=== PATIENT | male | born 1995 ===

== ENCOUNTER 2021-01-11 12:59 | Inpatient (IN) | payer OTHER ==
[2021-01-11 15:36] LABS: HEMATOCRIT 41.9 % (42.0-52.0); HEMOGLOBIN 14.4 g/dl (13.5-18.0); MEAN CELL VOLUME 88 fl (80.0-100.0); MEAN CORPUSCULAR HEMOGLOBIN 30 pg (27.0-31.0); MEAN CORPUSCULAR HGB CONC 34 g/dl (33.0-37.0); MEAN PLATELET VOLUME 9.9 fl (7.4-10.4); PLATELET COUNT 224 K/mm3 (130-400); RED BLOOD COUNT 4.78 M/mm3 (4.20-5.60); REDCELL DISTRIBUTION WIDTH-CV 12.1 % (11.5-14.5)
[2021-01-11 15:46] LABS: ALBUMIN 4.3 gm/dL (3.5-5.0); BILIRUBIN,TOTAL 1.1 mg/dL (0.0-1.0); CALCIUM 9.1 mg/dL (8.4-10.2); CREATININE, serum 0.98 (0.66-1.25); POTASSIUM 3.9 mmol/L (3.4-5.0); TOTAL PROTEIN 8.1 gm/dL (6.4-8.2)
[2021-01-11 15:59] VITALS: BP 127/80; PULSE 94; TEMP 98.5
[2021-01-11 16:25] LABS: BAND 1 % (0-10); LYMPHOCYTE 13 % (20.0-51.0); NEUTROPHILS 77 % (42.0-75.2)
[2021-01-11 20:15] VITALS: BP 123/84; PULSE 95; TEMP 99.5
[2021-01-12] VITALS (7 sets, daily range): BP systolic 94–144; BP diastolic 54–78; PULSE 66–94; TEMP 98.2–98.9
--- NOTE | 2021-01-12 06:03 | NUR ---
INDEPENDENT IN ROOM. NO c/o N/V. PT WAS ADMIN. MORPHINE FOR ABDOMINAL PAIN SEVERAL TIMES DURING THE NIGHT. NO REPORTS OF STOOLS OR BLOOD IN STOOL.
[2021-01-12 06:13] LABS: BASO # 0.1 (0.0-0.2); BASO % 0.6 % (0.0-2.0); EOS # 0.2 (0.0-0.7); EOS % 1.8 % (0-4.0); GRAN # 6.5 (1.4-6.5); GRAN % 63.8 % (42.2-75.2); HEMATOCRIT 38.7 % (42.0-52.0); HEMOGLOBIN 13.1 g/dl (13.5-18.0); LYMPH # 2.5 (1.2-3.4); LYMPH % 24.5 % (20.0-51.0); MEAN CELL VOLUME 89 fl (80.0-100.0); MEAN CORPUSCULAR HEMOGLOBIN 30 pg (27.0-31.0); MEAN CORPUSCULAR HGB CONC 34 g/dl (33.0-37.0); MONO # 0.9 (0.1-0.6); MONO % 8.8 % (1.7-9.3); PLATELET COUNT 214 K/mm3 (130-400); RED BLOOD COUNT 4.37 M/mm3 (4.20-5.60)
[2021-01-12 06:24] LABS: CALCIUM 8.8 mg/dL (8.4-10.2); CREATININE, serum 1.13 (0.66-1.25); POTASSIUM 4.2 mmol/L (3.4-5.0)
--- NOTE | 2021-01-12 08:34 | NUR ---
Patient resting in bed. Denies nausea, clear liquid tray for breakfast ordered. Reports elevated pain with Po intake, but not nausea. I spoke with Ambika Kinney, PO pain medication ordered & given to patient. Reports his pain to his LLQ. States he has taken [place] in the past and denies problems. Ivf per orders. Patient provided with hygiene supplies, he is wantitng to take shower after breakfast. Scds ordered for Dvt preventions. Will monitor.
--- NOTE | 2021-01-12 09:27 | NUR ---
PATIENT UP TO TAKE SHOWER. REPORTS [place]CO RELIEVING PAIN BETTER THAN MORPHINE WAS. WILL MONITOR.
--- NOTE | 2021-01-12 10:09 | NUR ---
HONG met with the patient to discuss discharge plan. The patient lives in [place] with his , Nayla (ph#[phone]), and their son. He reports independence with ADLs and does not have any DME. The patient receives primary care at [facility] on [address]. He could not recall his providers name. He receives his medications from [facility] in and he reports no difficulties obtaining his meds. The patient does not have a DPOA-HC and he was not interested in completing one while here. The patient plans to return home with his family upon discharge. No additional needs at this time. *Discharge plan: home with family*
--- NOTE | 2021-01-12 10:17 | NUR ---
Patient showered. Reports it was refreshing. His at bedside.
--- NOTE | 2021-01-12 12:43 | NUR ---
First visit from the automotive heavy mechanic. No needs right now.
--- NOTE | 2021-01-12 13:57 | NUR ---
Patient resting in bed. Rony manages pain. Continues to tolerate clear liquids. He does report having some loose stools.
--- NOTE | 2021-01-12 18:02 | NUR ---
Rony for pain. Ivf per orders. Clear liquids tray ordered. Denies nausea. Hopeful for discharge home tmrw. Will report off to nightnurse
[2021-01-13 03:41] VITALS: BP 106/58; PULSE 63; TEMP 98.6
[2021-01-13 07:08] LABS: BASO # 0.1 (0.0-0.2); BASO % 0.6 % (0.0-2.0); EOS # 0.2 (0.0-0.7); EOS % 1.9 % (0-4.0); GRAN # 5.2 (1.4-6.5); GRAN % 57.8 % (42.2-75.2); HEMATOCRIT 39.7 % (42.0-52.0); HEMOGLOBIN 13.5 g/dl (13.5-18.0); LYMPH # 2.6 (1.2-3.4); LYMPH % 29.2 % (20.0-51.0); MEAN CELL VOLUME 89 fl (80.0-100.0); MEAN CORPUSCULAR HEMOGLOBIN 30 pg (27.0-31.0); MEAN CORPUSCULAR HGB CONC 34 g/dl (33.0-37.0); MEAN PLATELET VOLUME 10.4 fl (7.4-10.4); MONO # 0.9 (0.1-0.6); MONO % 10.1 % (1.7-9.3); PLATELET COUNT 219 K/mm3 (130-400); RED BLOOD COUNT 4.46 M/mm3 (4.20-5.60); REDCELL DISTRIBUTION WIDTH-CV 11.9 % (11.5-14.5)
[2021-01-13 07:21] LABS: CALCIUM 8.9 mg/dL (8.4-10.2); CREATININE, serum 1.07 (0.66-1.25); POTASSIUM 3.8 mmol/L (3.4-5.0)
[2021-01-13 07:44] VITALS: BP 106/65; PULSE 69; TEMP 98.4
--- NOTE | 2021-01-13 08:00 | NUR ---
PATIENT IS ORIENTED BUT VERY DROWSY THIS AM. VSS. PRACTICE SPECIALIST GAVE PAIN MEDS SHORTLY BEFORE SHIFT CHANGE, PATIENT RESTING COMFORTABLY. ABD IS SL DISTENDED, SOFT AND WITH POSITIVE BOWL SOUNDS. NO C/O N/V. IV ABX INFUSING INTO RIGHT FORARM. HEAD TO TOE ASSESSMENT COMPLETE. NO NEEDS AT THIS TIME. CALL LIGHT IN REACH.
--- NOTE | 2021-01-13 10:01 | NUR ---
Initial visit; Patient thanked Auto Claims Adjuster for looking in on him, offering God's blessings and keeping him in Auto Claims Adjuster's prayers.
[2021-01-13 11:09] VITALS: BP 121/77; PULSE 72; TEMP 98.1
[2021-01-13 15:23] VITALS: BP 115/82; PULSE 71; TEMP 97.9
--- NOTE | 2021-01-13 18:53 | NUR ---
Patient sitting in bed eating his dinner. PRN pain medication administered by day nurse. No requests or concerns verbalized by patient at this time.
[2021-01-13 20:21] VITALS: BP 120/74; PULSE 86; TEMP 98.9
[2021-01-14 03:54] VITALS: BP 105/71; PULSE 61; TEMP 97.3
[2021-01-14 06:54] LABS: CALCIUM 8.8 mg/dL (8.4-10.2); CREATININE, serum 1.19 (0.66-1.25); POTASSIUM 3.7 mmol/L (3.4-5.0)
[2021-01-14 06:55] LABS: BASO # 0.1 (0.0-0.2); BASO % 0.7 % (0.0-2.0); EOS # 0.2 (0.0-0.7); EOS % 2.2 % (0-4.0); GRAN # 4.1 (1.4-6.5); HEMATOCRIT 37.9 % (42.0-52.0); LYMPH # 2.2 (1.2-3.4); LYMPH % 30.4 % (20.0-51.0); MEAN CELL VOLUME 88 fl (80.0-100.0); MEAN CORPUSCULAR HEMOGLOBIN 30 pg (27.0-31.0); MEAN CORPUSCULAR HGB CONC 34 g/dl (33.0-37.0); MEAN PLATELET VOLUME 10.2 fl (7.4-10.4); MONO # 0.8 (0.1-0.6); MONO % 10.2 % (1.7-9.3); PLATELET COUNT 252 K/mm3 (130-400); RED BLOOD COUNT 4.33 M/mm3 (4.20-5.60); REDCELL DISTRIBUTION WIDTH-CV 11.9 % (11.5-14.5)
[2021-01-14 07:33] VITALS: BP 108/65; PULSE 56; TEMP 98.3
[2021-01-14] MEDS ORDERED: AMOXICILLIN 8751 TAB PO (08:18)
[2021-01-14] MEDS ORDERED: NORCO 325 MG-51 TAB PO (08:19)
--- NOTE | 2021-01-14 10:30 | NUR ---
Patient is discharging home. Discharge instructions discussed with patient. No questions verbalized. INT discontinued. Explained he has scripts to case picker at the pharmacy. Discussed low fiber diet. Explained to finish the antibiotic even if feeling better. Explained when follow up appointment is. No questions verbalized. Copies of discharge instructions sent with patient. Patient packed up his own belongings. Patient walked out with [place] MOR[facility].
== END 2021-01-14 10:30 | disposition home or self-care (01) | DRG 872 ==
LOC: SURG 14:11
PROVIDERS: Physician Assistant; ADMIT Student in an Organized Health Care Education/Training Program
DX: A41.9 Sepsis, unspecified organism (principal); K57.20 Diverticulitis of large intestine with perforation and abscess without bleeding
CPT/HCPCS: 99222-AI; 99232-AI; 99238; A9284; J2270; J2543; J7120